=== PATIENT | female | born 1950 | race Caucasian/White ===

== ENCOUNTER 2017-09-04 19:23 | Emergency (ER) | payer OTHER ==
[~2017-09-04] VITALS: Ht 157.5 cm; Wt 59.0 kg
[~2017-09-04 19:23] MED LIST: IBUP-1953 PO; VICODINE
--- NOTE | 2017-09-04 19:47 | NUR ---
PT C/O PAIN IN RT HIP AND BOTH LEGS ON AND OFF FOR 2 WEEKS. STATES PAIN IS WORSE IN RT LEG IT RADIATES FROM HIP. STATES SHE WORKS IN [employer], AND IS ON HER FEET ALL DAY FOR WORK. DENIES FALL OR TRAUMA. CMS INTACT.
--- NOTE | 2017-09-04 19:54 | NUR ---
DR FLO ECHOLS MD AT BEDSIDE FOR MSE.
[2017-09-04] MEDS ORDERED: KETOROLAC TROMETHAMINE 30 MG INJ ONE (20:07)
[2017-09-04] MEDS ORDERED: KETOROLAC TROMETHAMINE 30 MG INJ IM ONE (20:15)
--- NOTE | 2017-09-04 20:22 | NUR ---
Patient discharged to home in stable conditon. Written and verbal after care instructions given. Patient verbalizes understanding of instructions. PT ambulated from ER w/ steady gait. Denies pain at this time. No distress noted. Pt took all personal belongings.
[2017-09-04 20:23] VITALS: BP 154/92
== END 2017-09-04 20:24 | disposition home or self-care (01) ==
LOC: ER 19:23
DX: M54.16 Radiculopathy, lumbar region (principal); G89.29 Other chronic pain; M54.5 Low back pain; E78.5 Hyperlipidemia, unspecified; F17.210 Nicotine dependence, cigarettes, uncomplicated; Z90.710 Acquired absence of both cervix and uterus; Z79.1 Long term (current) use of non-steroidal anti-inflammatories (NSAID); Z79.891 Long term (current) use of opiate analgesic
CPT/HCPCS: A4663; J1885